=== PATIENT | male | born 1970 ===

== ENCOUNTER 2023-05-15 22:16 | Emergency (ER) | payer SELFPAY ==
[~2023-05-15] VITALS: Ht 175.3 cm; Wt 72.6 kg
[2023-05-15 22:16] VITALS: BP 182/117; PULSE 87; RESP 16; TEMP 98; O2SAT 100
[2023-05-16 03:51] VITALS: BP 149/92; PULSE 86; RESP 16; TEMP 98; O2SAT 100
== END 2023-05-16 03:51 | disposition home or self-care (01) ==
LOC: MED 22:16 → EDBD 22:16 → MED 05-16 03:51
DX: S46.811A Strain of other muscles, fascia and tendons at shoulder and upper arm level, right arm, initial encounter (principal); T40.601A Poisoning by unspecified narcotics, accidental (unintentional), initial encounter; X58.XXXA Exposure to other specified factors, initial encounter; Y93.89 Activity, other specified; Y92.89 Other specified places as the place of occurrence of the external cause; Y99.8 Other external cause status
CPT/HCPCS: 73030; 99283; Q0092

== ENCOUNTER 2023-10-23 10:04 | Emergency (ER) | payer MEDICAID ==
[~2023-10-23] VITALS: Ht 175.3 cm; Wt 72.6 kg
[2023-10-23 10:10] VITALS: BP 167/107; PULSE 75; RESP 16; TEMP 98.6; O2SAT 100
[2023-10-23] MEDS: CLONIDINE HYDROCHLORIDE 0.1 MG TAB PO ONE (10:35)
[2023-10-23 11:08] VITALS: BP 160/100; PULSE 71
== END 2023-10-23 11:03 | disposition home or self-care (01) ==
LOC: MED 10:04
DX: I10 Essential (primary) hypertension (principal); Z02.89 Encounter for other administrative examinations
CPT/HCPCS: 99283

== ENCOUNTER 2023-11-01 03:55 | Emergency (ER) | payer MEDICAID ==
[~2023-11-01] VITALS: Ht 177.8 cm; Wt 77.1 kg
[2023-11-01 04:06] VITALS: BP 178/113; PULSE 69; RESP 18; TEMP 98.2; O2SAT 98
[2023-11-01] MEDS: NALOXONE 0.4 MG/ML VIAL IVP ONE (05:16)
[2023-11-01 05:23] LABS: BASOPHILS % (AUTO) 0.4 % (0.0-2.0); EOSINOPHILS # (AUTO) 0.1 K/uL (0-0.4); EOSINOPHILS % (AUTO) 1.3 % (0.0-4.0); HEMATOCRIT 37.7 % (36-52); HEMOGLOBIN 12.4 g/dL (12.0-18.0); LYMPHOCYTES # (AUTO) 1.6 K/uL (2.0-11.5); LYMPHOCYTES % (AUTO) 16.2 % (20.5-51.1); MEAN CORPUSCULAR HEMOGLOBIN 28 pg (27-31); MEAN CORPUSCULAR HGB CONC 33 g/dL (33-37); MEAN CORPUSCULAR VOLUME 84.3 fL (80-94); MONOCYTES # (AUTO) 0.9 K/uL (0.8-1.0); MONOCYTES % (AUTO) 9.3 % (1.7-9.3); NEUTROPHILS % (AUTO) 72.8 % (42.2-75.2); PLATELET COUNT (AUTO) 299 K/uL (140-450); RED BLOOD CELL COUNT(AUTO) 4.47 MIL/uL (4.20-6.10); RED CELL DISTRIBUTION WIDTH 17.1 % (11.6-13.7); WHITE BLOOD COUNT (AUTO) 9.7 K/uL (4.8-10.8)
[2023-11-01 05:53] LABS: CALCIUM 8.8 mg/dL (8.5-10.1); CARBON DIOXIDE 28.2 mmol/L (21-32); CREATININE 0.9 mg/dL (0.6-1.3); POTASSIUM 3.2 mmol/L (3.5-5.1)
[2023-11-01 06:26] LABS: FLU A ANTIGEN negative (NEGATIVE); FLU B ANTIGEN NEGATIVE (NEGATIVE)
[2023-11-01 10:12] LABS: AMPHETAMINE, URINE POSITIVE ng/ml (NEG <=1000); BARBITURATE, URINE NEGATIVE ng/ml (NEG <=200); BENZODIAZEPINE, URINE NEGATIVE ng/mL (NEG <=200); CANNABINOID, URINE POSITIVE ng/mL (NEG <=50); COCAINE, URINE POSITIVE ng/mL (NEG <=300)
[2023-11-01 10:13] LABS: OPIATE, URINE NEGATIVE ng/mL (NEG <=2000); PHENCYCLIDINE SCREEN,URINE POSITIVE ng/mL (NEG <=25)
[2023-11-01] MEDS ORDERED: NALO4SPR NS (10:28)
[2023-11-01 10:54] VITALS: BP 171/94; PULSE 68; RESP 16; TEMP 98.4; O2SAT 99
== END 2023-11-01 10:52 | disposition home or self-care (01) ==
LOC: MED 03:55
DX: M79.10 Myalgia, unspecified site (principal); F19.10 Other psychoactive substance abuse, uncomplicated; Z20.822 Contact with and (suspected) exposure to COVID-19; Z59.00 Homelessness unspecified; Y90.0 Blood alcohol level of less than 20 mg/100 ml
CPT/HCPCS: 36415; 71045; 80048; 80305; 85025; 87426; 87804; 96374; 99284; G0482; J2310